=== PATIENT | female | born 1975 | race Caucasian/White ===

== ENCOUNTER 2025-05-12 17:23 | Emergency (ER) | payer MEDICAID ==
[~2025-05-12] VITALS: Ht 172.7 cm; Wt 139.1 kg
[2025-05-12 17:28] VITALS: TEMP 98.7
--- NOTE | 2025-05-12 17:44 | Physician Documentation ---
History of Present Illness ~ Chief Complaint: Heat Related Stated Complaint: HEAT EXHAUSTION Time Seen by MD: 17:44 Source: patient Mode of Arrival: EMS Exam Limitations: no limitations HPI 49-year-old female with complaints of near syncopal episode due to being in the heat. Patient feels like she is dehydrated has not drink enough water. Medication Reconciliation Allergies: Coded Allergies: amoxicillin (Verified Allergy, Unknown, 05/12/25) metformin (Verified Allergy, Unknown, 05/12/25) tetracycline (Verified Allergy, Unknown, 05/12/25) Past Medical History Past Medical History: No Pertinent History Review of Systems All Other Systems at this time: Reviewed and Negative Physical Exam Vital Signs: Temperature: 98.7, Source: Oral, Heart Rate: 102, Respiratory Rate: 17, BP: 144/91, Pulse Oximetry: 97, Weight: 139.090 Physical Exam General: Alert, no apparent distress. HEENT: PERRL, EOMI, no injection, moist mucous membranes. Neck: Full range of motion. Respiratory: Lungs clear, no respiratory distress. Chest: No accessory muscle use. Cardiovascular: Regular rate and rhythm, no murmurs. Gastrointestinal: Soft, nontender, nondistended. Bowels sounds present. Extremities: Normal range of motion, no deformity. Neurologic: Oriented x4. Psychiatric: Normal mood and affect. Skin: Normal color, warm and dry. No edema, no ecchymosis. Progress Results/Orders Results/Orders Completed Orders - SRAAI REYES DESK[employer] ANALYST BMP (05/12/25 17:32) Cbc/Diff (05/12/25 17:32) Normal Saline 1000ml (0.9% Sodium Chlori (05/12/25 20:05) Potassium Cl Sr Tablet (K-Dur Tablet) (05/12/25 20:05) Medications Received in ER Medications (Trade) Dose Ordered Sig/Gerda Route PRN Reason Start Time Stop Time Status Last Admin Dose Admin (0.9% sodium chloride (NS) 1000ml IV soln) 1,000 ml ONCE ONCE IVB 05/12/25 20:05 05/12/25 20:08 DC 05/12/25 20:15 1,000 ML (K-DUR tablet) 40 meq ONCE ONCE PO 05/12/25 20:05 05/12/25 20:08 DC 05/12/25 20:15 40 MEQ Vital Signs 05/12/25 05/12/25 05/12/25 17:28 19:57 19:58 Temp 98.7 Pulse 102 85 Resp 17 16 B/P (MAP) 144/91 168/97 (120) Pulse Ox 97 97 O2 Flow Rate 0 Laboratory Tests Test 05/12/25 18:05 05/12/25 18:06 White Blood Count 14.0 H Red Blood Count 5.46 Hemoglobin 16.2 H Hematocrit 47.9 H Mean Corpuscular Volume 87.8 Mean Corpuscular Hemoglobin 29.6 Mean Corpuscular Hemoglobin Concent 33.7 Red Cell Distribution Width 13.7 Platelet Count 360 Mean Platelet Volume 8.8 Neutrophils (%) (Auto) 56.5 Lymphocytes (%) (Auto) 34.3 Monocytes (%) (Auto) 6.9 Eosinophils (%) (Auto) 1.9 Basophils (%) (Auto) 0.4 Neutrophils # (Auto) 7.9 H Lymphocytes # (Auto) 4.8 Monocytes # (Auto) 1.0 H Eosinophils # (Auto) 0.3 Basophils # (Auto) 0.1 CBC Comment Sodium Level 141 Potassium Level 3.3 L Chloride Level 104 Carbon Dioxide Level 23.2 L Anion Gap 14 Blood Urea Nitrogen 7 Creatinine 0.94 H Estimated GFR/1.73 m2 64 BUN/Creatinine Ratio 7.4 L Glucose Level 154 H Calcium Level 9.4 Albumin 4.0 Chemistry Comments Medical Decision Making Findings Patient's vital signs reviewed and reassuring. Patient's labs do point to dehydration and likely heat exhaustion. Potassium was replaced a L bag of fluid patient feels much better patient is tolerating p.o. fluids and would like to go home. Differential Dx:Considerations: Include: Dehydration, Electrolyte imbalance, Heat cramps, Heat exhaustion, Heat syncope, Hypotension Departure Time of Disposition: 21:03 Disposition: 01 HOME / SELF CARE / HOMELESS Impression: Primary Impression: Heat exhaustion Additional Impressions: Electrolyte depletion Hypokalemia Condition: Stable Discharge Instructions: Heat Illness Additional Instructions: As discussed during our encounter stay well hydrated tomorrow particularly it would be advised to have a couple of electrolyte replenishing drinks including Gatorade or Pedialyte. Referrals: NO PRIMARY CARE PROVIDER (PCP) Education Educated: Patient Educated regarding: diagnosis, treatment, need for follow up Signature Scribe Signature: no Scribe Attestation: The note accurately reflects work and decisions made by me.Sarai DIAMOND 05/12/25 21:05 SARAI REYES NP May 12, 2025 17:44
[2025-05-12 18:14] LABS: MEAN PLATELET VOLUME 8.8 FL (7.4-10.4); RED CELL DISTRIBUTION WIDTH 13.7 % (11.5-14.5)
[2025-05-12 18:25] LABS: CREATININE 0.94 MG/DL (0.40-0.90); TOTAL CARBON DIOXIDE 23.2 MMOL/L (24-32); eCRCL 74 ML/MIN; eGFR 64 ML/MIN
[2025-05-12] MEDS: normal saline 1000ML IV soln IVB ONE (20:15)
[2025-05-12] MEDS: potassium Cl 20 mEq SR tablet PO ONE (20:15)
[2025-05-12 21:19] VITALS: BP 162/88; PULSE 74; RESP 18; O2SAT 97
== END 2025-05-12 21:29 | disposition home or self-care (01) ==
LOC: ER 17:24
DX: T67.5XXA Heat exhaustion, unspecified, initial encounter (principal); E87.6 Hypokalemia; Z88.1 Allergy status to other antibiotic agents; Z88.8 Allergy status to other drugs, medicaments and biological substances; X58.XXXA Exposure to other specified factors, initial encounter; Y93.89 Activity, other specified; Y92.89 Other specified places as the place of occurrence of the external cause; Y99.8 Other external cause status
CPT/HCPCS: 36415; 80048; 85025; 96360; 99284; J7030; 96361

== ENCOUNTER 2025-10-14 17:53 | Emergency (ER) | payer MEDICAID ==
[~2025-10-14] VITALS: Ht 172.7 cm; Wt 134.6 kg
[2025-10-14 18:07] VITALS: BP 146/71; PULSE 88; RESP 18; TEMP 97.3; O2SAT 97
== END 2025-10-14 21:46 | disposition left against medical advice (07) ==
LOC: ER 17:53
DX: K13.79 Other lesions of oral mucosa (principal); R22.0 Localized swelling, mass and lump, head; Z53.21 Procedure and treatment not carried out due to patient leaving prior to being seen by health care provider; Z88.1 Allergy status to other antibiotic agents
CPT/HCPCS: 99281